=== PATIENT | male | born 1960 | race African-American/Black ===

== ENCOUNTER → 2016-12-30 | Outpatient (CLI) | payer OTHER | LOC: CLAB 11:40 | PROVIDERS: ATTEND Specialist | DX: B18.2 Chronic viral hepatitis C (principal); R76.11 Nonspecific reaction to tuberculin skin test without active tuberculosis; I15.9 Secondary hypertension, unspecified; M79.609 Pain in unspecified limb | CPT/HCPCS: 36415; 82140 ==